=== PATIENT | female | born 1960 | race Caucasian/White ===

== ENCOUNTER 2018-07-08 14:58 | Outpatient (CLI) | payer OTHER ==
[2018-06-27 10:58] VITALS: BP 132/71
[2018-07-08] MEDS ORDERED: ALBUTEROL SULFATE 2.5 MG/3 ML AMPUL.NEB NEB ONE (15:08)
== END 2018-07-08 15:05 ==
LOC: RT 14:58
PROVIDERS: ATTEND Nurse Practitioner Family
DX: J44.9 Chronic obstructive pulmonary disease, unspecified (principal)
CPT/HCPCS: 94060